=== PATIENT | male | born 1965 | race African-American/Black ===

== ENCOUNTER 2022-07-18 20:27 | Emergency (ER) | payer OTHER ==
[2022-07-18 20:47] VITALS: BP 137/92; PULSE 82; RESP 18; TEMP 98; BMI 25.7
[2022-07-18] MEDS ORDERED: CEFTRIAXONE 1,000 MG in DEXTROSE 5%-WATER - 50 ML IVPB ONE (21:06)
[2022-07-18] MEDS ORDERED: DOXYCYCLINE INJECTION 100 MG in DEXTROSE 5%-WATER 100 ML IVPB ONE (21:07)
[2022-07-18] MEDS ORDERED: IBUPROFEN 600 MG TABLET (FP) PO ONE ×2 (22:31→22:41)
== END 2022-07-18 22:42 | disposition home or self-care (01) ==
LOC: FER 20:27
DX: N50.812 Left testicular pain (principal)
CPT/HCPCS: 76870-TC; 81003; 99284-25